=== PATIENT | female | born 1965 | race Caucasian/White ===

== ENCOUNTER 2020-06-22 10:45 | Inpatient (IN) | payer MEDICARE ==
[~2020-06-22] VITALS: Ht 170.2 cm; Wt 60.0 kg
[~2020-06-22 10:45] MED LIST: ACID CONTROLLER10 MG; AF-MIGRAIN1 PO; APPLE CIDE1 PO; FLEXERIL5 MG PO; GABAPENTIN800 MG PO; GARCINIA CAMBOG1 TAB; HAIR SKIN & NAI1 CHW; MUCINEX600 MG PO; TIZANIDINE4 MG PO; TRAMADOL HCL50 MG PO; VITAMI16 PO; VITAMIN D PO; [UNRECOGNIZED DRUG - CODE]
--- NOTE | 2020-06-22 11:00 | NUR ---
PATIENT TO ROOM VIA WHEELCHAIR AND PHYSICIAN NOTIFID OF PATIENT STATUS
--- NOTE | 2020-06-22 11:44 | NUR ---
PT SITTING UP IN BED WITH HOB ELELVATED O2 SAT 97% ON RA. NO DYSPNEA OR TACHYPNEA NOTED. VSS. PT UPDATED ON POC ADN WAIT TIME. PO FLUIDS GIVEN PT STATES SHE CANT URINATE.
[2020-06-22 11:48] LABS: HEMOGLOBIN 15.4 g/dl (12.0-16.0); IMMATURE GRANULOCYTES 0.3 % (0.0-5.0); MEAN CELL VOLUME 93.6 fL CALC (80.0-100.0); MEAN CORPUSCULAR HGB CONC 32.1 g/dL CAL (32.0-36.0); NEUT# 12.76 thou/uL (2.00-7.15); RED BLOOD COUNT 5.13 mill/uL (4.20-5.60); RED CELL DISTRI WIDTH 13.5 % (11.5-15.5)
[2020-06-22 12:09] LABS: ACT PARTIAL THROMBO TIME 30.1 SECONDS (20.0-32.5)
[2020-06-22 12:23] LABS: ALBUMIN 4.3 g/dL (3.2-5.0); ALKALINE PHOSPHATASE 211 u/l (38-126); AMYLASE 116 u/l (30-110); ANION GAP 11 (6-22 (CALC)); BILIRUBIN, TOTAL 0.6 mg/dL (0.0-1.4); BUN 20 mg/dL (7-17); BUN/CREATININE RATIO 17 (12-20 (CALC)); CARBON DIOXIDE 26 mmol/l (22-30); CHLORIDE 105 mmol/l (95-108); CREATININE 1.2 mg/dL (0.5-1.0); GFR 46 ML/MIN (>=60 (CALC)); GFR FOR AFR.AMER. 56 ML/MIN (>=60 (CALC)); LIPASE 68 u/l (23-300); POTASSIUM 4.6 mmol/l (3.5-5.1); SGOT/AST 96 u/l (14-36); SODIUM 138 mmol/l (137-146); TOTAL PROTEIN 7.7 g/dL (6.3-8.2)
[2020-06-22 12:39] LABS: C-REACTIVE PROTEIN 13.5 mg/dL (0-0.9)
--- NOTE | 2020-06-22 12:44 | NUR ---
PT RESTING SUPINE WITH HOB ELEVATED IN NO DISTRESS. VSS. RESP EVEN AND UNLABORED.
--- NOTE | 2020-06-22 12:52 | NUR ---
PT AMBULATED TO BATHROOM IN NO DISTRESS WITH STEADY GAIT. NO DYSPNEA WITH EXERTION. PT RETURNED TO BED TO AWAIT RESULTS. DISCUSSED CTA AND WAIT TIME . PT AGREEABLE.
--- NOTE | 2020-06-22 13:52 | NUR ---
PT AWAKE AND ALER TIN NO DISTRESS. NO COUGH OR SOB IN ED. O2 SAT 97-98% ON RA. IV ABT INFUSING WITHOUT COMPLAINT. UPDATED ON WAIT TIME AND POC
--- NOTE | 2020-06-22 14:20 | NUR ---
CALLED TO ROOM PT IN TEARS HOLDING EPIGASTRIC REGION, C/O SUDDEN ONSET NAUSEA AND PRESSURE. EKG PERFORMED AND PRN ZOFRAN GIVEN WITH GOOD RELIEF. CALL PLACED TO AIR BRUSH OPERATOR.
[2020-06-22 14:29] LABS: URINE BILIRUBIN - DIPSTICK NEGATIVE (NEGATIVE); URINE BLOOD DIPSTICK TRACE-INTACT (NEGATIVE); URINE COLOR YELLOW; URINE GLUCOSE - DIPSTICK NEGATIVE (NEGATIVE); URINE KETONE NEGATIVE (NEGATIVE); URINE LEUK ESTERASE NEGATIVE (NEGATIVE); URINE NITRITE - DIPSTICK NEGATIVE (Negative); URINE PROTEIN - DIPSTICK NEGATIVE (NEG-TRACE); URINE SPECIFIC GRAVITY <=1.005; URINE UROBILINOGEN - DIPSTICK 0.2 E.U./dL (0.2)
[2020-06-22] MEDS ORDERED: GABAPENTIN800 MG PO (14:47)
[2020-06-22] MEDS ORDERED: ZANAFLEX2 MG PO (14:48)
[2020-06-22] MEDS ORDERED: TRAMADOL HCL50 MG PO (14:48)
[2020-06-22] MEDS ORDERED: EXCEDRIN MIGRAINE PO (14:49)
[2020-06-22] MEDS ORDERED: ACCOLATE10 MG PO (14:50)
--- NOTE | 2020-06-22 15:50 | NUR ---
TRANSPORTED TO MD VIA STRETCHER IN NO DISTRESS WITHOUT DIFFICULTY BREATHING .
--- NOTE | 2020-06-22 15:55 | NUR ---
REPORT REC FROM SHY PETIT
--- NOTE | 2020-06-22 16:05 | NUR ---
PT ARRIVED TO [place] VIA STRETCHER. A&O X3. NO DISTRESS NOTED. PT REPORTS TO HAVE JUST ARRIVED FROM [place], COUGH NOTED AND ALSO REPORTED TO HAVE SPUTUM PRODUCTION BUT IT IS NOT NOTED AT THIS TIME. PT STATES HAS JUST TESTED POSITIVE FOR C19, PT TESTED PRIOR TO ARRIVING TO IN BUT CAME BACK NEGATIVE, STATES THAT SHE WAS ALOS DX WITH PNA UPON D/C FROM HOSPITAL IN [place]. C1 AND C2 INJURY IN THE PAST, WITH CURRENT NECK PAIN 02/02. PT DENIES ANY PAST MED HX BESIDES OA. PT CURRENTLY ON RA. LEEROY SAN OFFERED BUT REFUSED. NORVASC 5 MG GIVEN FOR BP DUE TO BP INSTABILITY. ASSESSMENT COMPLETED. ORIENTED PT TO ROOM. ELECTROPLATER APPRENTICE CHECKED AND FIXED. CALL LIGHT IN REACH. ISOLATION PRECAUTIONS IN PLACE. CONTINUE TO MONITOR.
[2020-06-22 16:10] VITALS: BP 159/81
[2020-06-22 19:21] VITALS: BP 151/75
--- NOTE | 2020-06-22 20:47 | NUR ---
PT MEDICATED ORDERS PROVIDE. ICE PROVIDED PER REQUEST. ASSESSMENT COMPLETED AT THIS TIME. CALL LIGHT AT BEDSIDE AND PT ENCOURAGED TO CALL NEEDS ARISE. PT DENIES FEELING SOB AT THIS TIME. OXYGEN SAT 94% ON RA. WILL CONTINUE TO MONITOR.
[2020-06-22 23:53] VITALS: BP 140/80
--- NOTE | 2020-06-23 | NUR ---
PT SLEEPING, NO S/O DISTRESS NOTED.
--- NOTE | 2020-06-23 02:34 | NUR ---
PT SLEEPING, NO S/O DISTRESS NOTED. CALL LIGHT AT SIDE.
[2020-06-23 04:46] VITALS: BP 151/71
[2020-06-23 06:11] LABS: HEMATOCRIT 47.4 % (37.0-47.0); HEMOGLOBIN 15.3 g/dl (12.0-16.0); IMMATURE GRANULOCYTES 0.2 % (0.0-5.0); MEAN CELL VOLUME 93.5 fL CALC (80.0-100.0); MEAN CORPUSCULAR HGB 30.2 pG CALC (26.0-32.0); MEAN CORPUSCULAR HGB CONC 32.3 g/dL CAL (32.0-36.0); NEUT# 6.92 thou/uL (2.00-7.15); RED BLOOD COUNT 5.07 mill/uL (4.20-5.60); RED CELL DISTRI WIDTH 13.5 % (11.5-15.5)
[2020-06-23 06:35] LABS: ALBUMIN 3.8 g/dL (3.2-5.0); ALKALINE PHOSPHATASE 198 u/l (38-126); ANION GAP 10 (6-22 (CALC)); BILIRUBIN, TOTAL 0.6 mg/dL (0.0-1.4); BUN 17 mg/dL (7-17); BUN/CREATININE RATIO 18 (12-20 (CALC)); CALCULATED LDLCHOLESTEROL 147 mg/dL (62-129 (CALC)); CARBON DIOXIDE 25 mmol/l (22-30); CHLORIDE 110 mmol/l (95-108); CHOLESTEROL HDL RATIO 4.6 (<4.4 (CALC)); CREATININE 0.9 mg/dL (0.5-1.0); GFR > 60 ML/MIN (>=60 (CALC)); GFR FOR AFR.AMER. > 60 ML/MIN (>=60 (CALC)); HDL CHOLESTEROL 50 mg/dL (>=40); MAGNESIUM 1.9 mg/dL (1.6-2.3); POTASSIUM 4.3 mmol/l (3.5-5.1); SGOT/AST 65 u/l (14-36); SODIUM 140 mmol/l (137-146); TOTAL CHOLESTEROL 228 mg/dl (0-199); TOTAL PROTEIN 6.7 g/dL (6.3-8.2); TOTAL TRIGLYCERIDES 157 mg/dl (30-149); VLDL CHOLESTROL 31 mg/dl (2-49 (CALC))
[2020-06-23 06:52] LABS: C-REACTIVE PROTEIN 13.3 mg/dL (0-0.9)
[2020-06-23 09:36] VITALS: BP 134/71
[2020-06-23] MEDS ORDERED: TRAMADOL HYDROC50 M1 PO (11:13)
[2020-06-23] MEDS ORDERED: [UNRECOGNIZED DRUG - OTHER] PO (11:19)
[2020-06-23] MEDS ORDERED: [UNRECOGNIZED DRUG - OTHER] PO (11:21)
[2020-06-23] MEDS ORDERED: IS-ZC 50 50 MG1 TAB PO (11:23)
[2020-06-23] MEDS ORDERED: ACID CONTROLLER10 MG PO (11:23)
[2020-06-23] MEDS ORDERED: HAIR SKIN & NAI1 CHW PO (11:24)
[2020-06-23 11:31] VITALS: BP 166/86
[2020-06-23] MEDS ORDERED: AMLODIPINE BESYL5 MG PO (12:46)
[2020-06-23] MEDS ORDERED: ZITHROMAX250 MG PO (12:47)
[2020-06-23] MEDS ORDERED: ALBUTEROL108 MCG/AC IN (12:55)
[2020-06-23 14:30] VITALS: BP 152/80
--- NOTE | 2020-06-23 16:00 | NUR ---
Discharge instructions given. Patient verbalizes understanding of same. Discharged in stable condition via Wheelchair to Home with staff. Pt encouraged to return if symptoms worsen. Flutter valve given and instructions of use as well. All belongings sent with pt.
[2020-06-23] MEDS ORDERED: DEXAMETHASON6 MG PO (20:00)
--- NOTE | 2020-06-28 10:08 | NUR ---
Pneumonia post discharge follow up call completed today, 06/28. Pt. states she is improving. She still has cough in morning but sees improvement as day progresses. Pt. has not had fever since Saturday. No chills. Still experiences fatigue on exertion. Pt. obtained all discharge medications and is taking without issue. She has not made a follow up appt. with PCP. Pt. plans to establish with [facility]. Encouraged pt. to pursue this ANTON. Pt. requestd results of flu test. Provided. No other questions or needs. Pt. expressed appreciation to staff members Roxana in ED and Micaela on MS for excellent care.
== END 2020-06-23 16:00 | disposition home or self-care (01) | DRG 195 ==
LOC: ED 10:45 → ED-I 13:50 → ED 14:12 → MS2 14:13
PROVIDERS: Nurse Practitioner; ADMIT Internal Medicine; ATTEND Internal Medicine
DX: J18.9 Pneumonia, unspecified organism (principal); I16.0 Hypertensive urgency; I10 Essential (primary) hypertension; R09.02 Hypoxemia; G62.9 Polyneuropathy, unspecified; F17.200 Nicotine dependence, unspecified, uncomplicated; Z20.828 Contact with and (suspected) exposure to other viral communicable diseases
CPT/HCPCS: J1650; Q9967